=== PATIENT | female | born 1960 | race Caucasian/White ===

== ENCOUNTER 2019-10-18 23:30 | Emergency (ER) | payer BC ==
[~2019-10-18] VITALS: Ht 172.7 cm; Wt 77.3 kg
[2019-10-19] MEDS ORDERED: amox tr/potassium clavulanate 875/125mg TAB PO ONE (00:40)
[2019-10-19] MEDS ORDERED: iohexol 350MG/ML 100ml bottle IV ONE (01:07)
[2019-10-19 01:33] LABS: BASOPHILS % (AUTO) 0.3 % (0-1); EOSINOPHILS # (AUTO) 0.1 X10'3 (0-0.9); EOSINOPHILS % (AUTO) 1.4 % (0-6); HEMATOCRIT 39.5 % (35.0-45.0); HEMOGLOBIN 13.2 g/dl (12.0-16.0); LYMPHOCYTES # (AUTO) 1.5 X10'3 (1.1-4.8); LYMPHOCYTES % (AUTO) 20.7 % (21-51); MEAN CORPUSCULAR HEMOGLOBIN 28.7 PG (27.0-31.0); MEAN CORPUSCULAR HGB CONC 33.5 g/dL (33.0-36.5); MEAN CORPUSCULAR VOLUME 85.6 FL (78-98); MEAN PLATELET VOLUME 7.3 FL (7.4-10.4); MONOCYTES # (AUTO) 0.5 X10'3 (0-0.9); MONOCYTES % (AUTO) 6.5 % (2-12); NEUTROPHILS # (AUTO) 5.1 X10'3 (1.8-7.7); NEUTROPHILS % (AUTO) 71.1 % (42-75); PLATELET COUNT 194 X10'3 (140-440); RED BLOOD COUNT 4.61 X10'6 (4.20-5.60); RED CELL DISTRIBUTION WIDTH 14.3 % (11.5-14.5); WHITE BLOOD COUNT 7.2 X10'3 (4.5-11.0)
[2019-10-19 01:40] LABS: ALBUMIN 3.7 G/DL (3.4-5.0); ANION GAP 7 (8-16); BLOOD UREA NITROGEN 16 MG/DL (7-18); BUN/CREATININE RATIO 16.2 (6.6-38.0); CALCIUM 8.8 MG/DL (8.5-10.1); CHLORIDE 105 MMOL/L (99-107); CREATININE 0.99 MG/DL (0.40-0.90); GLUCOSE 98 MG/DL (70-104); POTASSIUM 3.9 MMOL/L (3.5-5.1); SODIUM 141 MMOL/L (135-145); TOTAL CARBON DIOXIDE 29.3 MMOL/L (24-32); eGFR 58 ML/MIN
[2019-10-19 02:01] VITALS: BP 125/89
--- NOTE | 2019-10-19 02:01 | NUR ---
returned from ct
[2019-10-19] MEDS ORDERED: AMOX-422 PO (02:23)
== END 2019-10-19 03:06 | disposition home or self-care (01) ==
LOC: ER 23:31
DX: S70.11XA Contusion of right thigh, initial encounter (principal); T14.8XXA Other injury of unspecified body region, initial encounter; Z86.69 Personal history of other diseases of the nervous system and sense organs; Z79.899 Other long term (current) drug therapy; W54.0XXA Bitten by dog, initial encounter; Y93.89 Activity, other specified; Y92.89 Other specified places as the place of occurrence of the external cause; Y99.8 Other external cause status
CPT/HCPCS: 36415; 73706; 80048; 85025; 99285; Q9967

== ENCOUNTER 2022-08-05 12:57 | Emergency (ER) | payer BC ==
[~2022-08-05] VITALS: Ht 172.7 cm; Wt 82.7 kg
[2022-08-05 13:02] VITALS: BP 134/69
[2022-08-05] MEDS ORDERED: METH4TAB3 PO (17:01)
[2022-08-05] MEDS ORDERED: ORPH100T4 PO (17:01)
--- NOTE | 2022-08-05 17:15 | NUR ---
PT REQUESTING CT SCAN OR MRI.
== END 2022-08-05 17:17 | disposition home or self-care (01) ==
LOC: ER 12:58
DX: M54.12 Radiculopathy, cervical region (principal); Z87.891 Personal history of nicotine dependence; Z79.899 Other long term (current) drug therapy
CPT/HCPCS: 99283

== ENCOUNTER 2022-08-26 22:02 | Emergency (ER) | payer BC ==
[~2022-08-26] VITALS: Ht 172.7 cm; Wt 85.0 kg
[~2022-08-26 22:02] MED LIST: METH4TAB3 PO; ORPH100T4 PO
[2022-08-26 22:23] VITALS: BP 181/91
[2022-08-26] MEDS ORDERED: ketorolac trometh inj. 60 MG/2 ML VIAL IM ONE (22:35)
[2022-08-26] MEDS ORDERED: DICL100G30 TOP (23:02)
[2022-08-26] MEDS ORDERED: PREG50CA PO (23:02)
== END 2022-08-26 23:21 | disposition home or self-care (01) ==
LOC: ER 22:03
DX: M54.12 Radiculopathy, cervical region (principal); M79.601 Pain in right arm
CPT/HCPCS: 96372; 99283; J1885